=== PATIENT | female | born 1955 | race Caucasian/White ===

== ENCOUNTER → 2017-04-06 | Outpatient (CLI) | payer OTHER ==
[2017-04-02 15:12] VITALS: BMI 47.4
[2017-04-06 12:18] VITALS: BP 149/70; PULSE 86; RESP 16; TEMP 98.2
--- NOTE | 2017-04-06 12:55 | P.HPIM ---
History of Present Illness H&P Date: 04/06/17 Chief Complaint: neck pain, shoulder pain, headaches This is a 62-year-old patient referred by Dr. Boogie for chronic pain in neck with radiation to left shoulder and the top of the head on both sides. Patient has been taking medications from primary care physician including tramadol/ Flexeril/Neurontin medications with little relief. Patient denies adverse drug effects from medications. Patient also denies new-onset weakness, bowel/ bladder incontinence, or any other signs or symptoms of cauda equina syndrome. There are no signs of acute intoxication, and no indications of medication diversion or overuse. Patient notes that pain worsens significantly with standing and driving, and improves with rest and medication. Patient has used several types of medications for pain, including NSAIDS, OPIOIDS, TRAMADOL. Patient HAS had surgery (C4-C7 anterior fusion). Patient HAS/HAS NOT had injections previously. Patient HAS/HAS NOT had physical therapy recently. In addition to above, 13-point review of systems is also negative for chest pain , shortness of breath, changes in vision, changes in hearing, new onset weakness , abdominal pain, diarrhea, extreme fatigue, malaise, fever, skin changes, homicidal or suicidal ideation, or bowel or bladder incontinence. 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 Neuro: CN II-XII grossly intact, muscle strength lower extremities PRESERVED 1 Past Medical History Past Medical History: Diabetes Mellitus, GERD/Reflux, Hyperlipidemia, Hypertension, Renal Disease Additional Past Medical History / Comment(s): CHRONIC HEADACHES, NECK PAIN, STATES STAGE 4 RENAL FAILURE History of Any Multi-Drug Resistant Organisms: None Reported Past Surgical History: Adenoidectomy, Section, Cholecystectomy, Tonsillectomy Additional Past Surgical History / Comment(s): PLATES/SCREWS NECK, RIGHT CATARACT, EGD Past Anesthesia/Blood Transfusion Reactions: No Reported Reaction Smoking Status: Former smoker - Past Family History Mother Family Medical History: Cancer Medications and Allergies Home Medications Medication Instructions Recorded Confirmed Type Aspirin [Adult Low Dose Aspirin EC] 81 mg PO DAILY 04/02/17 04/06/17 History Cholecalciferol [Vitamin D3] 3,000 unit PO DAILY 04/02/17 04/06/17 History DULoxetine HCL [Cymbalta] 30 mg PO DAILY 04/02/17 04/06/17 History Diltiazem HCl [Cardizem] 120 mg PO DAILY 04/02/17 04/06/17 History Gabapentin [Neurontin] 300 mg PO QID 04/02/17 04/06/17 History Gemfibrozil [Lopid] 600 mg PO AC-BID 04/02/17 04/06/17 History Hydrochlorothiazide [Hydrodiuril] 37.5 mg PO DAILY 04/02/17 04/06/17 History INSULIN LISPRO (HumaLOG) [humaLOG] 0 unit SQ TID 04/02/17 04/06/17 History Insulin Glargine [Lantus] 100 unit SQ HS 04/02/17 04/06/17 History Lisinopril 40 mg PO DAILY 04/02/17 04/06/17 History Omeprazole 20 mg PO DAILY 04/02/17 04/06/17 History Rosuvastatin Calcium [Crestor] 40 mg PO DAILY 04/02/17 04/06/17 History tiZANidine HCL [Zanaflex] 4 mg PO BID 04/02/17 04/06/17 History traMADol HCL [Conzip] 100 mg PO BID 04/02/17 04/06/17 History Allergies Allergy/AdvReac Type Severity Reaction Status Date / Time propranolol [From Inderal LA] Allergy Swelling/IT Verified 04/02/17 14:57 GERRI Physical Exam Vitals: Vital Signs Temp Pulse Resp BP Pulse Ox 04/06/17 12:06 98.2 F 86 16 149/70 96 Results Comments: CT of the cervical spine dated 07/25/2016 demonstrates metallic fusion hardware fusing C5 through C7 with an anterior fixation plate and bony fusion from C4 to C5 also. There is straightening of the cervical spine at this level with loss of normal lordosis. There is also incidental note made of a hypodense area in the left medial submandibular gland. Assessment and Plan Plan: 1. Explanation: Opioid and psychological risk scores were reviewed. Diagnoses , prognoses, and multiple treatment options including but not limited to physical therapy, interventional therapies, adjuvant medical therapies, narcotic medication therapies, and surgery were discussed with the patient and all questions were answered to the patient's satisfaction. 2. Opioid agreement: no opioids prescribed today 3. Counseling: The patient was counseled extensively on BODY MASS INDEX, EXERCISE. Specifically, the patient was instructed regarding the importance of weight control, and exercise in the context of both chronic pain and overall health. 4. Procedures: bilateral cervical MBB C3-C6 5. Consultations: none 6. Investigations: none 7. Medications: none prescribed 8. Disposition: f/u for procedure as scheduled PQRS measures: 1-Patient's medications are documented in the chart. 2-Tobacco use is negative 3-Patient has not had a pneumococcal vaccine. 4-Advanced care planning discussed, patient unable to give. 5-Opioid contract NOT signed with the patient. 6-Pain positive, follow-up visit or procedure scheduled 7-Patient's blood pressure measured and documented, and patient will follow up with the primary care due to hypertension. 8-Patient's weight was measured, and body mass index ABOVE the normal limits, and counseling was done. Patient instructed to follow up with PCP. 9-Patient WAS NOT identified as an unhealthy alcohol user. Time with Patient: Greater than 30
== END | disposition home or self-care (01) ==
LOC: PNWHC3 11:53
PROVIDERS: ATTEND Anesthesiology
DX: M47.812 Spondylosis without myelopathy or radiculopathy, cervical region (principal); M96.1 Postlaminectomy syndrome, not elsewhere classified; E11.9 Type 2 diabetes mellitus without complications; K21.9 Gastro-esophageal reflux disease without esophagitis; E78.5 Hyperlipidemia, unspecified; I10 Essential (primary) hypertension; N28.9 Disorder of kidney and ureter, unspecified; Z79.82 Long term (current) use of aspirin; Z79.899 Other long term (current) drug therapy; Z79.4 Long term (current) use of insulin; Z87.891 Personal history of nicotine dependence
CPT/HCPCS: 99201

== ENCOUNTER → 2017-08-04 | Outpatient (CLI) | payer OTHER ==
[2017-08-04 15:14] VITALS: BP 152/64; PULSE 79; RESP 16
--- NOTE | 2017-08-04 15:34 | P.PN ---
Subjective Progress Note Date: 08/04/17 This is 62 years old female with a chronic history of severe neck pain and headache, a close with cervical degenerative disc disease and cervical spondylosis status post diagnostic medial branch block cervical area at C3 4 , C4 5 and C5 6 , 2 she got more than 60% of pain improvement after each one of the diagnostic medial branch block, the pain relief lasted for a few days Objective - Vital Signs Vital signs: Vital Signs Temp Pulse 79 08/04/17 15:05 Resp 16 08/04/17 15:05 BP 152/64 08/04/17 15:05 Pulse Ox 97 08/04/17 15:05 Intake & Output 08/03/17 08/04/17 08/04/17 18:59 06:59 18:59 Weight 118.388 kg - Exam Physical Examinations : 1-Constitutiona : Cooperative , not in acute distress . 2-HEENT : nech ; supple , no Lymphadenopathy , normal thyroid size . eyes : no ptosis , no icterus, no photophobia . ENT : normal of hearing , normal oropharynx , no Thrush . 3- Respiratory : Chest clear to auscultations Bilaterally , no wheezing , no Rhonchi . 4- Cardiovascular : regular rate and rhythem , S1 , S2 , no S3 , no S4. 5- Gastrointestinal : abdomen soft no tenderness , bowel sounds positive all four quadrents , no organomegally . 6- Genitourinary : Defferred . 7- neurologic : Cranial nerve II to XII intact , no focal neurological deffecit . 8-psychatric : alert , oriented X 3 , appropriate affect , intact judgment and insight . 9-Lymphatic : no Lymphadenopathy . 10- musculoskeltal : cervical spine = motor stregnth in the deltoid and biceps, motor stregnth biceps and the wrist extensors (C6) . motor stregnth in the triceps muscle . deep tendon reflexes normal at the biceps , normal at Brachioradialis , normal at the Triceps positive cervical facet loading test . Assessment and Plan Plan: Assessment and plan = chronic severe neck pain secondary to cervical degenerative disc disease and cervical spondylosis, patient had a good result after the anoxic medial branch block cervical area done twice and she would be good candidate for radiofrequency ablation of the medial branch cervical area we will start with a left-sided then proceeded to the right side patient will be scheduled to have radiofrequency ablation of the left side C3 4 , C4 5 and C5 6 on the fluoroscopy guidance , then do the right side Time with Patient: Less than 30
== END | disposition home or self-care (01) ==
LOC: PNWHC3 13:33
PROVIDERS: ATTEND Specialist
DX: G89.29 Other chronic pain (principal); M50.31 Other cervical disc degeneration, high cervical region; M47.812 Spondylosis without myelopathy or radiculopathy, cervical region
CPT/HCPCS: 99211

== ENCOUNTER 2017-09-01 07:40 | Day surgery (SDC) | payer OTHER ==
[2017-08-30 10:39] VITALS: BMI 37.3
[~2017-09-01 07:40] MED LIST: LACTATED RINGERS 1,000 ML IV SCH
[2017-09-01 07:57] VITALS: RESP 18; TEMP 98.4
[2017-09-01] MEDS ORDERED: LIDOCAINE 1% 20 ML VIAL (10MG/ML) FOR IV START INTRADERMA ONE (08:05)
[2017-09-01 08:10] LABS: Glucose,Whole Blood 70 mg/dL (75-99)
--- NOTE | 2017-09-01 08:52 | P.PCN ---
Date of Procedure: 09/01/17 Procedure(s) Performed: PREOPERATIVE DIAGNOSIS: 1-Cervical spondylosis with Facet Arthropathy without myelopathy. 2-cervical degenerative disc disease POSTOPERATIVE DIAGNOSIS: 1-Cervical spondylosis with Facet Arthropathy without myelopathy. 2-cervical degenerative disc disease PROCEDURES: Radiofrequency thermocoagulation, left C3-4 , C4-5, C5- 6 medial branch with Fluroscopy [place]idence ANESTHESIA: Local with 1% lidocaine 4 ml , moderate sedation with fentanyl 50 micrograms and Versed.2 mg EBL: Minimal PROCEDURE INDICATION: The patient with neck pain secondary to cervical arthropathy who had more than 50% relief of her pain with previous diagnostic cervical medial branch block. PROCEDURE DESCRIPTION / TECHNIQUE: The patient was seen and identified in the preoperative area. Risks, benefits, complications, and alternatives were discussed with the patient, the patient agreed to proceed with the procedure and signed the consent. IV was started. Vital signs remained stable throughout the procedure. Patient was taken to the OR and time out was completed. The patient was placed in the prone position on the procedure table. A pillow was placed under the patients chest to increase the cervical interlaminar space. The cervical area was prepped and draped in the usual sterile fashion. Critical pause was taken. Vital signs were closely monitored during the procedure. Conscious sedation was used during the procedure to decrease patients anxiety. Using cross-table lateral fluoroscopy, the centroid of the trapezoid of left C3 , C4, C5 were identified, marked, and localized with 1% lidocaine. Subsequently, a 20 [id number] radiofrequency cannula with a 10-mm active tip was advanced guided by fluoroscopy to the centroid of the trapezoid of left C3 , C4, C5, . Needle tip position was confirmed at the centroid of the trapezoids of left C3, C4, C5, with anteroposterior fluoroscopy. Each site then underwent sensory testing at 50 Hz and 0 to 1 volt and motor testing at 2 Hz and 0 to 3 volt with local stimulation, but no radicular symptoms down the arm. Thereafter the left C3, C4,C5 sites underwent radiofrequency thermocoagulation at 80 degrees celsius for 90 seconds after injecting 0.5 ml of PF lidocaine 1%. After thermocoagulation, 1 ml of the block solution containing Kenalog 40 mg and 5 mL of preservative-free normal saline was injected at the left C3, C4, C5, levels after negative aspiration of CSF and blood and with no paresthesias. Cannulas were retracted while injecting lidocaine 1% until the needle is out. Skin was cleansed and bandages were applied. COMPLICATIONS: No acute complications. COMMENTS: DISPOSITION / PLANS: The patient was placed in a supine position and transferred to the recovery area in a stable condition for observation and was discharged from the recovery room after meeting discharge criteria. Home discharge instructions given to the patient by the staff. The patient was reexamined prior to discharge. The patient will schedule a follow up in the clinic in 2-4 weeks.
[2017-09-01] MEDS ORDERED: IV FLUID CONTINUATION 1,000 ML IV ONE (08:58)
--- NOTE | 2017-09-01 09:03 | FL ---
Fluoroscopy INDICATION: Pain FINDINGS: Fluoroscopy time: 26 seconds. Images obtained: 4. IMPRESSIONS: 1. Documentation of fluoroscopy.
[2017-09-01 09:07] LABS: Glucose,Whole Blood 55 mg/dL (75-99)
[2017-09-01 09:27] LABS: Glucose,Whole Blood 67 mg/dL (75-99)
[2017-09-01 09:41] LABS: Glucose,Whole Blood 66 mg/dL (75-99)
[2017-09-01 09:58] LABS: Glucose,Whole Blood 81 mg/dL (75-99)
[2017-09-01 10:11] VITALS: BP 128/63; PULSE 83
== END 2017-09-01 10:08 | disposition home or self-care (01) ==
LOC: ORPAIN 07:40
PROVIDERS: ATTEND Specialist
DX: G89.29 Other chronic pain (principal); M47.812 Spondylosis without myelopathy or radiculopathy, cervical region; M50.30 Other cervical disc degeneration, unspecified cervical region; E11.9 Type 2 diabetes mellitus without complications; Z88.8 Allergy status to other drugs, medicaments and biological substances
CPT/HCPCS: 64633; 64634; J2250; J3301; J3010; 99152; 99153

== ENCOUNTER 2017-10-06 08:32 | Day surgery (SDC) | payer OTHER ==
[2017-09-28 16:23] VITALS: BMI 37.3
[2017-10-06] MEDS ORDERED: LACTATED RINGERS 1,000 ML IV SCH (09:00)
[2017-10-06 10:40] VITALS: RESP 16; TEMP 97.6
[2017-10-06] MEDS ORDERED: LIDOCAINE 1% 20 ML VIAL (10MG/ML) FOR IV START INTRADERMA ONE (10:49)
[2017-10-06 11:07] LABS: Glucose,Whole Blood 94 mg/dL (75-99)
--- NOTE | 2017-10-06 11:24 | P.PCN ---
Date of Procedure: 10/06/17 Surgeon: John Poole Pathology: none sent Condition: stable Disposition: PACU Description of Procedure: PREOPERATIVE DIAGNOSIS: Cervical spondylosis without myelopathy and facet arthropathy. POSTOPERATIVE DIAGNOSIS: Cervical spondylosis without myelopathy and facet arthropathy. PROCEDURES: Radiofrequency thermocoagulation, C3-C4, C4-C5, C5-C6 medial branch , with fluoroscopic guidance, right side. ANESTHESIA: Local with 1% lidocaine; conscious sedation EBL: Minimal PROCEDURE INDICATION: The patient with neck pain secondary to cervical arthropathy who had more than 50% relief of her pain with previous diagnostic cervical medial branch block and good relief from left cervical RFA. No use of blood thinners. PROCEDURE DESCRIPTION / TECHNIQUE: The patient was seen and identified in the preoperative area. Risks, benefits, complications, and alternatives were discussed with the patient (with risks including but not limited to bleeding, infection, nerve damage, incomplete pain relief, and allergic reactions to medications), the patient agreed to proceed with the procedure and signed the informed consent after all questions were answered. IV was started. Vital signs remained stable throughout the procedure. Patient was taken to the OR and time out was completed to verify proper patient , procedure, laterality of procedure, and allergies. The patient was placed in the prone position on the procedure table. A pillow was placed under the patient s chest to increase the cervical interlaminar space. The cervical area was prepped and draped in the usual sterile fashion. Critical pause was taken. Vital signs were closely monitored during the procedure. Conscious sedation was used during the procedure to decrease patients anxiety. Using cross-table lateral fluoroscopy, the centroid of the trapezoid of C3, C4, C5, C6, and C7 were identified, marked, and localized with 1% lidocaine. Subsequently, a 21 gauge 100-mm radiofrequency cannula with a 5-mm active tip was advanced guided by fluoroscopy to the centroid of the trapezoids of C3, C4, and C5. Needle tip position was confirmed at the centroid of the trapezoids of C3, C4, and C5 with anteroposterior fluoroscopy. Each site then underwent sensory testing at 50 Hz and 0 to 1 volt and motor testing at 2 Hz and 0 to 3 volt with local stimulation, but no radicular symptoms down the arm. Thereafter C3, C4, and C5 sites underwent radiofrequency thermocoagulation at 80 degrees celsius for 90 seconds after injecting 0.5 ml of PF lidocaine 1%. After thermocoagulation, 1 ml of the block solution containing Decadron 10 mg and 2 mL of preservative-free normal saline was injected at the C3, C4, and C5 levels after negative aspiration of CSF and blood and with no paresthesias. Cannulas were retracted while injecting lidocaine 1% until the needle is out. Skin was cleansed and bandages were applied. COMPLICATIONS: No acute complications. COMMENTS: DISPOSITION / PLANS: The patient was placed in a supine position and transferred to the recovery area in a stable condition for observation and was discharged from the recovery room after meeting discharge criteria. Home discharge instructions given to the patient by the staff. The patient was reexamined prior to discharge. The patient will schedule a follow up in the clinic in 2-4 weeks.
[2017-10-06] MEDS ORDERED: IV FLUID CONTINUATION 1,000 ML IV ONE (11:38)
--- NOTE | 2017-10-06 11:38 | FL ---
Fluoroscopy INDICATION: Pain FINDINGS: Fluoroscopy time: 12 seconds. Images obtained: 2. IMPRESSIONS: 1. Documentation of fluoroscopy.
[2017-10-06 11:54] VITALS: BP 119/76; PULSE 84
== END 2017-10-06 12:06 | disposition home or self-care (01) ==
LOC: ORPAIN 08:32
PROVIDERS: ATTEND Anesthesiology
DX: M47.812 Spondylosis without myelopathy or radiculopathy, cervical region (principal); Z88.8 Allergy status to other drugs, medicaments and biological substances; I10 Essential (primary) hypertension; E78.5 Hyperlipidemia, unspecified; E11.9 Type 2 diabetes mellitus without complications
CPT/HCPCS: 64633; 64634 ×2; J2250; J1100; J3010; 99152

== ENCOUNTER → 2017-10-27 | Outpatient (CLI) | payer OTHER ==
[2017-10-27 11:37] VITALS: BP 135/83; PULSE 87; RESP 16
--- NOTE | 2017-10-27 12:06 | P.PN ---
Progress Note - Text Progress Note Date: 10/27/17 Progress Note - Text In addition to above, 13-point review of systems is also negative for chest pain , shortness of breath, changes in vision, changes in hearing, new onset weakness , abdominal pain, diarrhea, extreme fatigue, malaise, fever, skin changes, homicidal or suicidal ideation, or bowel or bladder incontinence. Vital Signs: Reviewed in EMR. blood pressure is 135/83 Gen: WDWN, AAOx3, NAD HEENT: NCAT, EOMI, hearing grossly normal Pulm: resp unlabored Abd: soft, NT, ND Neck: supple, trachea midline. Decreased range of motion in flexion and extension. TTP in the left trapezius area ROM in flexion lumbar spine: reduced ROM in extension lumbar spine: reduced Neuro: muscle strength lower extremities PRESERVED Imaging: Reviewed in EMR. CT of the cervical spine dated 07/25/2016 reveals extensive fusion identified from C4 through C7 with additional chronic changes. Assessment: 1. Cervical radiculopathy 2. Cervical degenerative disc disease 3. status post cervical fusion 4. Cervical spondylosis Plan: 1. Explanation: Opioid and psychological risk scores were reviewed. Diagnoses , prognoses, and multiple treatment options including but not limited to physical therapy, interventional therapies, adjuvant medical therapies, narcotic medication therapies, and surgery were discussed with the patient and all questions were answered to the patient's satisfaction. She is not receiving medications from our facility. 2. Opioid agreement: Non-due to the patient not receiving medications from our clinic. 3. Counseling: The patient was counseled extensively on SMOKING CESSATION, BODY MASS INDEX, EXERCISE. Specifically, the patient was instructed regarding the importance of smoking cessation, obesity, and exercise in the context of both chronic pain and overall health. 4. Procedures: We will schedule the patient for a cervical steroid injection and left trapezius trigger point injections. I've explained these procedures to her as well as risks and benefits and she agrees to proceed forward. I discussed with her the potential effects of the steroid on her diabetes including hyperglycemia. I've advised her to watch her sugar levels closely for at least a week after the procedure. I would recommend utilizing a lower dose of steroids for this patient. 5. Consultations: None 6. Investigations: None 7. Medications: None 8. Disposition: Patient will be scheduled for a cervical epidural steroid injection and left trapezius trigger point injections PQRS measures: 1-Patient's medications are documented in the chart. 2-Tobacco use is positive, counseling given 6-Pain positive, follow-up visit or procedure scheduled 7-Patient's blood pressure measured and documented, and WNL. 8-Patient's weight was measured, and body mass index ABOVE the normal limits, and counseling was done. Patient instructed to follow up with PCP. 9-Patient WAS NOT identified as an unhealthy alcohol user.
== END | disposition home or self-care (01) ==
LOC: PNWHC3 11:22
PROVIDERS: ATTEND Pain Medicine Pain Medicine
DX: M54.12 Radiculopathy, cervical region (principal); M50.321 Other cervical disc degeneration at C4-C5 level; M47.9 Spondylosis, unspecified
CPT/HCPCS: 99211

== ENCOUNTER 2017-11-23 06:37 | Day surgery (SDC) | payer OTHER ==
[2017-11-15 15:13] VITALS: BMI 37.3
[2017-11-23 07:46] VITALS: TEMP 97.4
[2017-11-23] MEDS ORDERED: LIDOCAINE 1% 20 ML VIAL (10MG/ML) FOR IV START INTRADERMA ONE (07:51)
[2017-11-23] MEDS ORDERED: LACTATED RINGERS 1,000 ML IV ONE (07:51)
[2017-11-23 07:53] LABS: Glucose,Whole Blood 85 mg/dL (75-99)
[2017-11-23] MEDS ORDERED: LACTATED RINGERS 1,000 ML IV SCH (08:00)
--- NOTE | 2017-11-23 08:15 | P.PCN ---
Date of Procedure: 11/23/17 Surgeon: Tushar Lamb Description of Procedure: PREOPERATIVE DIAGNOSIS: Cervical radiculopathy Cervical degenerative disc disease POSTOPERATIVE DIAGNOSIS: Cervical radiculopathy Cervical degenerative disc disease PROCEDURE Cervical neural steroid injection under fluoroscopic guidance at the C7-T1 interspace. ANESTHESIA: Local with 1% lidocaine 3 ml and IV sedation with Versed 2 mg EBL: Minimal PROCEDURE INDICATION: The patient with left cervical radicular symptoms unresponsive to conservative treatment. Fluoroscopy was used to optimize visualization of the needle placement and to maximize safety. She complains of pain in her neck, left arm and numbness down her left arm into her hand. PROCEDURE DESCRIPTION / TECHNIQUE: The patient was seen and identified in the preoperative area. Risks, benefits , complications including but not limited to infections ,bleeding ,allergic reaction to the medications ,nerve damage and incomplete pain relief, and alternatives were discussed with the patient. The patient agreed to proceed with the procedure and signed the consent. IV was started, and vital signs were stable. Patient was taken to the OR and time out was completed. The patient was placed in the prone position on procedure table and a pillow was placed under the chest area.. The cervical area was prepped and draped in the usual sterile fashion. Conscious sedation was used during the procedure to decrease patient s anxiety. Vital signs was monitered during the entire procedure. Using anterior-posterior fluoroscopy, the C7-T1 interlaminar space was identified and the skin over this site was marked and then infiltrated with 1% lidocaine subcutaneously. Subsequently, a 20-gauge Tuohy epidural needle was inserted and advanced toward the epidural space using the loss of resistance technique and guided by AP and lateral fluoroscopy. The correct needle position in the epidural space was verified with the injection of contrast and observing an excellent epidurogram with the epidural spread of the dye, after negative aspiration for blood and CSF and in the absence of paresthesias. Again after negative aspiration, a 4 ml mixture containing 20 mg of Dexamethasone was injected. Needle was withdrawn intact, skin was cleansed, and bandages were applied. COMPLICATIONS: None DISPOSITION / PLANS: The patient was placed in a supine position and transferred to the recovery area in a stable condition for observation. There was no evidence of lower extremity motor or sensory deficit after the procedure. Patient was discharged from the recovery room after meeting discharge criteria. Home discharge instructions were given to the patient by the staff. The patient was reexamined prior to discharge. The patient will schedule a follow up in the clinic in 2-4 weeks. Preoperative Diagnosis: myofascial pain syndrome of left trapezius Postoperative diagnosis: Same Anesthesia: Local Surgeon: Tushar Lamb MD Indications for procedure: This is a 62-year-old patient with myofascial pain and palpable trigger points in left trapezius muscles. The patient consents for an injection after an explanation of risks including but not limited to bleeding and infection, benefits, and alternatives and the patient has signed a consent form indicating understanding of all of them. Description of procedure: After informed consent was obtained the patient's back was sterilely prepped in the usual fashion with ChloraPrep. 1 trigger points were identified via palpation of the left trapezius muscles and marked sterilely. Each trigger point was injected with a 25-gauge half inch needle, with 1 mL of 0.5% Marcaine. The patient's vital signs were stable afterwards and the procedure was tolerated well. Patient was discharged home with follow-up instructions.
[2017-11-23 08:23] VITALS: RESP 18
--- NOTE | 2017-11-23 08:40 | FL ---
EXAMINATION TYPE: FL guided pain mgmt statistic DATE OF EXAM: 11/23/2017 HISTORY: Pain 1 sec fluoro, 1 image scanned, cervical epidural. Dr. Lamb.
[2017-11-23 08:45] VITALS: BP 130/79; PULSE 84
[2017-11-23] MEDS ORDERED: IV FLUID CONTINUATION 1,000 ML IV ONE (08:46)
== END 2017-11-23 08:51 | disposition home or self-care (01) ==
LOC: ORPAIN 06:37
PROVIDERS: ATTEND Pain Medicine Pain Medicine
DX: M50.10 Cervical disc disorder with radiculopathy, unspecified cervical region (principal); M79.1 Myalgia; I10 Essential (primary) hypertension; E11.9 Type 2 diabetes mellitus without complications
CPT/HCPCS: 20552; 62321; J2250; J1100

== ENCOUNTER 2017-12-14 06:25 | Day surgery (SDC) | payer OTHER ==
[2017-12-09 10:59] VITALS: BMI 35.9
[2017-12-14 08:02] VITALS: TEMP 97.8
[2017-12-14] MEDS ORDERED: LIDOCAINE 1% 20 ML VIAL (10MG/ML) FOR IV START INTRADERMA ONE (08:15)
[2017-12-14 08:20] LABS: Glucose,Whole Blood 85 mg/dL (75-99)
[2017-12-14 08:53] VITALS: PULSE 72
--- NOTE | 2017-12-14 09:09 | FL ---
EXAMINATION TYPE: FL guided pain mgmt statistic DATE OF EXAM: 12/14/2017 CLINICAL HISTORY: Neck pain. TECHNIQUE: Fluoroscopy. COMPARISON: None. FINDINGS: Fluoroscopic guidance was provided during pain relief procedure performed by Dr. Poole . A total of 6 seconds of fluoroscopic time was utilized during the procedure and two spot images are a cquired. Images acquired shows needle localization at C7 level, overlying anterior fusion plate is p resent. IMPRESSION: As Above.
[2017-12-14 09:14] VITALS: BP 131/83; RESP 18
[2017-12-14] MEDS ORDERED: IV FLUID CONTINUATION 1,000 ML IV ONE (09:15)
--- NOTE | 2017-12-14 09:47 | P.PCN ---
Date of Procedure: 12/14/17 Surgeon: John Poole Pathology: none sent Condition: stable Disposition: PACU Description of Procedure: PREOPERATIVE DIAGNOSIS: Cervical radiculopathy, myofascial pain syndrome left shoulder area POSTOPERATIVE DIAGNOSIS: Cervical radiculopathy, myofascial pain syndrome left shoulder area PROCEDURE 1. Cervical epidural steroid injection under fluoroscopic guidance, C7-T1 level. 2. Cervical epidurogram. 3. Trigger point injection x 3 left trapezius muscle ANESTHESIA: Local anesthesia with 1% lidocaine and IV sedation with versed/ fentanyl. EBL: Minimal PROCEDURE INDICATION: The patient with neck pain and radiculitis unresponsive to conservative treatment consents for procedure today. No use of blood thinners. PROCEDURE DESCRIPTION / TECHNIQUE: The patient was seen and identified in the preoperative area. Risks, benefits, complications, and alternatives were discussed with the patient (including but not limited to incomplete pain relief, bleeding, infection, nerve damage, and allergies to medications), the patient agreed to proceed with the procedure and signed the consent after all questions were answered. Patient was taken to the OR and time out was completed to verify proper patient , position, laterality of pain, and allergies. Pt was placed in the prone position. A pillow was placed under the patients chest to increase the cervical interlaminar space. The cervical area was prepped and draped in the usual sterile fashion. Critical pause was taken. Vital signs were closely monitored during the procedure. Conscious sedation was used during the procedure to decrease patients anxiety. Using anterior-posterior fluoroscopy, the C7-T1 interlaminar space was identified and the skin over this site was marked and then infiltrated with 1% lidocaine subcutaneously in a paramedian fashion. Subsequently, a 20-gauge 3-1/2 -inch Tuohy epidural needle was inserted and advanced toward the epidural space by means of the loss of resistance technique and guided by AP and lateral fluoroscopy. After negative aspiration for blood or CSF and in the absence of paresthesias, the correct needle position in the epidural space was verified with the injection of 1 mL of the water soluble contrast dye Isovue 200 and observing an excellent epidurogram with the epidural spread of the dye, after negative aspiration for blood and CSF and in the absence of paresthesias. Again after negative aspiration, a 3 ml mixture containing 20 mg of Decadron and 1 ml of preservative free Normal Saline solution was injected and a washout of epidurogram was seen. Needle was withdrawn intact. Attention was then turned to the trigger points in the left shoulder area. Each of the previously marked 3 areas was then infiltrated with 1% plain lidocaine using a 25g needle. After this, each point was entered with the same 25g needle and after a catch was felt, dry needling was performed. After negative aspiration at each point, 1 ml of a total of 3 ml (combination of 2 ml 0.5% bupivacaine and 10 mg dexamethasone PF was injected in each area. Needle was withdrawn intact each time, skin was cleansed, and bandages were applied. COMMENTS: DISPOSITION / PLANS: The patient was placed in a supine position and transferred to the recovery area in a stable condition for observation. There was no evidence of upper extremity motor or sensory deficit after the procedure. Patient was discharged from the recovery room after meeting discharge criteria. Home discharge instructions were given to the patient by the staff. The patient was reexamined prior to discharge and there were no issues. The patient will schedule a third ARLET + TPI.
== END 2017-12-14 09:16 | disposition home or self-care (01) ==
LOC: ORPAIN 06:25
PROVIDERS: ATTEND Anesthesiology
DX: M54.12 Radiculopathy, cervical region (principal); M79.1 Myalgia; M25.512 Pain in left shoulder; I10 Essential (primary) hypertension; E11.9 Type 2 diabetes mellitus without complications; Z91.09 Other allergy status, other than to drugs and biological substances
CPT/HCPCS: 20552; 62321; J2250; J1100; Q9966; 99152

== ENCOUNTER 2017-12-30 06:21 | Day surgery (SDC) | payer OTHER ==
[2017-12-23 15:05] VITALS: BMI 37.3
[2017-12-30] MEDS ORDERED: LIDOCAINE 1% 20 ML VIAL (10MG/ML) FOR IV START INTRADERMA ONE (06:53)
[2017-12-30] MEDS ORDERED: LACTATED RINGERS 1,000 ML IV ONE (06:53)
[2017-12-30] MEDS ORDERED: LACTATED RINGERS 1,000 ML IV SCH (07:00)
--- NOTE | 2017-12-30 07:19 | P.PCN ---
Date of Procedure: 12/30/17 Surgeon: Tushar Lamb Description of Procedure: PREOPERATIVE DIAGNOSIS: Cervical radiculopathy Cervical degenerative disc disease POSTOPERATIVE DIAGNOSIS: Cervical radiculopathy Cervical degenerative disc disease PROCEDURE Cervical neural steroid injection under fluoroscopic guidance at the C7-T1 interspace. ANESTHESIA: Local with 1% lidocaine 3 ml and IV sedation with Versed 2 mg EBL: Minimal PROCEDURE INDICATION: This is a pleasant 62-year-old woman with a history of left cervical radicular pain. She reports numbness and tingling down her left arm as well. She reports that the symptoms have been significantly improved since she has started undergoing these injections. She feels as though they are working and helping to improve her overall quality of life. She presents today for repeat of this procedure. She is diabetic and follows her blood sugars closely. She reports that her sugar did go up for possibly 1 week after her last injection however she notes that this was not extremely significant. She is asymptomatic from this. She has had this experience with all of our injections. I counseled her again today that this could occur and how she should management. I strongly encouraged her to contact her primary care physician regarding instructions on diabetic management if she required further assistance. PROCEDURE DESCRIPTION / TECHNIQUE: The patient was seen and identified in the preoperative area. Risks, benefits , complications including but not limited to infections ,bleeding ,allergic reaction to the medications ,nerve damage and incomplete pain relief, and alternatives were discussed with the patient. The patient agreed to proceed with the procedure and signed the consent. IV was started, and vital signs were stable. Patient was taken to the OR and time out was completed. The patient was placed in the prone position on procedure table and a pillow was placed under the chest area.. The cervical area was prepped and draped in the usual sterile fashion. Conscious sedation was used during the procedure to decrease patient s anxiety. Vital signs was monitered during the entire procedure. Using anterior-posterior fluoroscopy, the C7-T1 interlaminar space was identified and the skin over this site was marked and then infiltrated with 1% lidocaine subcutaneously. Subsequently, a 20-gauge Tuohy epidural needle was inserted and advanced toward the epidural space using the loss of resistance technique and guided by AP and lateral fluoroscopy. The correct needle position in the epidural space was verified with the injection of contrast and observing an excellent epidurogram with the epidural spread of the dye, after negative aspiration for blood and CSF and in the absence of paresthesias. Again after negative aspiration, a 4 ml mixture containing 40 mg of Depo-Medrol was injected. Needle was withdrawn intact, skin was cleansed, and bandages were applied. COMPLICATIONS: None DISPOSITION / PLANS: The patient was placed in a supine position and transferred to the recovery area in a stable condition for observation. There was no evidence of lower extremity motor or sensory deficit after the procedure. Patient was discharged from the recovery room after meeting discharge criteria. Home discharge instructions were given to the patient by the staff. The patient was reexamined prior to discharge. The patient will schedule a follow up in the clinic in 2-4 weeks.
[2017-12-30 07:29] VITALS: RESP 16; TEMP 97.4
[2017-12-30 07:32] LABS: Glucose,Whole Blood 104 mg/dL (75-99)
--- NOTE | 2017-12-30 07:35 | P.PCN ---
Date of Procedure: 12/30/17 Surgeon: Tushar Lamb Description of Procedure: Preoperative Diagnosis: myofascial pain syndrome of left trapezius Postoperative diagnosis: Same Anesthesia: Local Surgeon: Tushar Lamb MD Indications for procedure: This is a 62-year-old patient with myofascial pain and palpable trigger points in [] muscles. The patient consents for an injection after an explanation of risks including but not limited to bleeding and infection, benefits, and alternatives and the patient has signed a consent form indicating understanding of all of them. Description of procedure: After informed consent was obtained the patient's back was sterilely prepped in the usual fashion with ChloraPrep. 3 trigger points were identified via palpation of the left trapezius muscles and marked sterilely. Each trigger point was injected with a 25-gauge half inch needle, with 1 mL of 0.5% ropivacaine for total of 5 mls. The patient's vital signs were stable afterwards and the procedure was tolerated well. Patient was discharged home with follow-up instructions.
[2017-12-30] MEDS ORDERED: IV FLUID CONTINUATION 1,000 ML IV ONE (07:38)
--- NOTE | 2017-12-30 07:50 | FL ---
EXAMINATION TYPE: FL guided pain mgmt statistic DATE OF EXAM: 12/30/2017 FLUOROSCOPY Fluoroscopy time of 1 seconds was used during cervical epidural injection. ACDF hardware is present. 1 image/s document/s the procedure.
[2017-12-30 07:51] LABS: Glucose,Whole Blood 119 mg/dL (75-99)
[2017-12-30 08:00] VITALS: BP 139/81; PULSE 75
== END 2017-12-30 08:16 | disposition home or self-care (01) ==
LOC: ORPAIN 06:21
PROVIDERS: ATTEND Pain Medicine Pain Medicine
DX: M50.10 Cervical disc disorder with radiculopathy, unspecified cervical region (principal); M79.1 Myalgia; Z88.8 Allergy status to other drugs, medicaments and biological substances
CPT/HCPCS: 20552; 62321; J2250; J1030